=== PATIENT | male | born 1950 | race Caucasian/White ===

== ENCOUNTER 2024-12-23 10:53 | Outpatient (RCR) | payer OTHER, SELFPAY | END 2024-12-23 23:59 | disposition home or self-care (01) | LOC: ROT 10:53 | PROVIDERS: ATTENDING PHYSICIAN Internal Medicine; FAMILY PHYSICIAN Internal Medicine | DX: G20.C Parkinsonism, unspecified (principal); Z73.6 Limitation of activities due to disability; R26.2 Difficulty in walking, not elsewhere classified; R29.6 Repeated falls | CPT/HCPCS: 97110; 97112; 97162; 97167; 97530 ==

== ENCOUNTER 2025-01-07 11:27 | Outpatient (RCR) | payer OTHER, SELFPAY | END 2025-01-24 08:10 | disposition home or self-care (01) | LOC: ROT 11:27 | PROVIDERS: ATTENDING PHYSICIAN Internal Medicine; FAMILY PHYSICIAN Internal Medicine | DX: G20.C Parkinsonism, unspecified (principal); R26.2 Difficulty in walking, not elsewhere classified; Z73.6 Limitation of activities due to disability; R29.6 Repeated falls | CPT/HCPCS: 97110; 97112; 97116; 97530 ==